=== PATIENT | male | born 1955 | race African-American/Black ===

== ENCOUNTER 2021-02-12 13:58 | Inpatient (IN) | payer MEDICARE, OTHER ==
[~2021-02-12] VITALS: Ht 180.3 cm; Wt 79.4 kg
--- NOTE | 2021-02-12 14:10 | NUR ---
PT BIB [facility] C/O BLE AND RUE EDEMA FOR A FEW DAYS. PT IS A DIALYSIS PATIENT AND WAS LAST DIALYZED FRIDAY. 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 STABLE VITALS. AWAITING MD MONTELONGO.
[2021-02-12] MEDS ORDERED: TAMS-12 PO (14:11)
[2021-02-12] MEDS ORDERED: MAGN400O6 PO (14:11)
[2021-02-12] MEDS ORDERED: SENN-261 PO (14:11)
[2021-02-12] MEDS ORDERED: NA P133E RC (14:11)
[2021-02-12] MEDS ORDERED: BISA10SU11 RC (14:11)
[2021-02-12] MEDS ORDERED: AMLO-213 PO (14:11)
[2021-02-12] MEDS ORDERED: SEVE800T8 PO (14:11)
[2021-02-12] MEDS ORDERED: ACET-868 PO (14:11)
[2021-02-12] MEDS ORDERED: FINA5TAB11 PO (14:11)
[2021-02-12] MEDS ORDERED: ACET-2605 PO (14:11)
--- NOTE | 2021-02-12 14:15 | NUR ---
DR PAZ AT BEDSIDE FOR EVAL.
--- NOTE | 2021-02-12 14:35 | NUR ---
IV LINE STARTED BLOOD DRAWN AND SENT TO LAB.
[2021-02-12 14:43] LABS: BASOPHILS # (AUTO) 0.1 K/uL (0.0-0.2); EOSINOPHILS % (AUTO) 2.1 % (0.0-6.0); HEMATOCRIT 28 % (39-51); HEMOGLOBIN 9.2 g/dL (13.5-17.5); LYMPHOCYTES % (AUTO) 9.3 % (20.0-44.0); MEAN CORPUSCULAR HGB CONC 33 g/dl (31.0-36.0); MEAN CORPUSCULAR VOLUME 80 fL (80-96); MONOCYTES # (AUTO) 0.8 K/uL (0.1-1.30); MONOCYTES % (AUTO) 6.8 % (2.0-12.0); NEUTROPHILS % (AUTO) 80.8 % (43.0-81.0); PLATELET COUNT (AUTO) 371 K/uL (150-450); RED BLOOD CELL COUNT(AUTO) 3.54 MIL/uL (4.5-6.0); WHITE BLOOD COUNT (AUTO) 11.2 K/uL (4.3-11.0)
[2021-02-12 15:07] LABS: CALCIUM, SERUM 8.2 mg/dL (8.5-10.1); CARBON DIOXIDE 25 mmol/L (21-32); CHLORIDE 99 mmol/L (98-107); GLUCOSE 114 mg/dL (74-106); SODIUM SERUM 133 mmol/L (136-145); UREA NITROGEN, BLOOD 50 mg/dL (7-18)
[2021-02-12 15:16] LABS: POTASSIUM 6.2 mmol/L (3.5-5.1)
[2021-02-12 15:17] LABS: CREATININE 7.7 mg/dL (0.6-1.3)
--- NOTE | 2021-02-12 15:20 | NUR ---
LAB REPORTED POTASSIUM 6.2, CREATININE 7.7. REPORTS READ BACK. DOCTOR MCINTOSH AWARE. WILL CONTINUE TO MONITOR Addendum: 02/12/21 at 1524 by IF LAB REPORTED POTASSIUM 6.2, CREATININE 7.7. REPORTS READ BACK. DOCTOR PAZ MADE AWARE. WILL CONTINUE TO MONITOR
[2021-02-12 15:21] LABS: ALANINE AMINOTRANSFERASE 11 U/L (12-78); ALBUMIN 2.2 g/dL (3.4-5.0); ALKALINE PHOSPHATASE 129 U/L (46-116); ASPARTATE AMINOTRANSFERASE 25 U/L (15-37); BILIRUBIN,DIRECT 0.1 mg/dL (0.0-0.2); BILIRUBIN,TOTAL 0.3 mg/dL (0.2-1.0)
[2021-02-12] MEDS ORDERED: INSULIN REGULAR, HUMAN 100 UNIT/ML 10 ML VIAL IV ONE (15:30)
[2021-02-12] MEDS ORDERED: FUROSEMIDE 40 MG/4 ML VIAL IV ONE (15:30)
[2021-02-12] MEDS ORDERED: FUROSEMIDE 20 MG/2 ML VIAL ONE (15:30)
[2021-02-12] MEDS ORDERED: SODIUM BICARBONATE SYR 50 MEQ/50 ML DISP.SYRIN IV ONE ×2 (15:30→22:30)
[2021-02-12] MEDS ORDERED: DEXTROSE 50%-WATER 50 ML DISP.SYRIN IV ONE (15:30)
[2021-02-12] MEDS ORDERED: CALCIUM CHLORIDE 1,000 MG/10 ML DISP.SYRIN IV ONE (15:30)
[2021-02-12] MEDS ORDERED: DEXTROSE 50%-WATER 50 ML DISP.SYRIN ONE (15:39)
[2021-02-12] MEDS ORDERED: SODIUM BICARBONATE SYR 50 MEQ/50 ML DISP.SYRIN ONE (15:39)
[2021-02-12] MEDS ORDERED: CALCIUM CHLORIDE 1,000 MG/10 ML DISP.SYRIN ONE (15:39)
[2021-02-12] MEDS ORDERED: INSULIN REGULAR, HUMAN 100 UNIT/ML 10 ML VIAL ONE (15:40)
[2021-02-12] MEDS ORDERED: HYDROCODONE/APAP 10/325MG TABLET ONE (16:07)
[2021-02-12] MEDS ORDERED: HYDROCODONE/APAP 10/325MG TABLET PO ONE (16:30)
--- NOTE | 2021-02-12 19:20 | NUR ---
REPORT TO CANDIDO SALAZAR FOR LORI.
[2021-02-12] MEDS ORDERED: SODIUM POLYSTYRENE SULFONATE 15 G/60 ML BOTTLE PO ONE ×2 (19:30→23:00)
[2021-02-12] MEDS ORDERED: SODIUM POLYSTYRENE SULFONATE 15 G/60 ML BOTTLE ONE ×2 (19:42→23:41)
--- NOTE | 2021-02-12 21:40 | NUR ---
PER NURSING RN 113-2 IS THE ROOM PT WILL GO TO.
--- NOTE | 2021-02-12 22:18 | NUR ---
CONTACTED DR LLAMAS, DR RAMIREZ, DR WYATT REGARDING THROMBUS IN RIGHT IJV. PER DR WYATT OK TO USE PERMACATH. PER DR LLAMAS WILL START PT ON ELIQUIS.
--- NOTE | 2021-02-12 22:24 | NUR ---
gave report to MARTIN Valderrama for lindsey
[2021-02-12 22:33] VITALS: BP 177/112
--- NOTE | 2021-02-12 22:33 | NUR ---
ADMIT NOTE PATIENT TRANSFERRED FROM ER TO ROOM 113-2. ALERT AND ORIENTED X4, ABLE TO MAKE NEEDS KNOWN. ON ROOM AIR, O2 SAT 97%. RESPIRATIONS EVEN AND UNLABORED. COMPLAINED OF MODERATE GENERALIZED PAIN, REQUESTING FOR PAIN PILL POST DIALYSIS. IV ACCESS ON SANGITA #20. NOTED WITH RIGHT CHEST WALL HD CATH. CONSENT FOR HEMODIALYSIS RECEIVED FROM PATIENT, FOR DIALYSIS TONIGHT. COMPLAINED OF RIGHT ARM SWELLING +4 PITTING EDEMA X2 WEEKS. ALSO NOTED WITH +4 PITTING EDEMA ON BILATERAL LOWER EXTREMITIES AND SCROTUM. SKIN IS INTACT. PATIENT NOTED WITH "Distended right internal jugular vein with near occlusive thrombus." MD AWARE. ORIENTED PATIENT TO ROOM AND CALL LIGHT. BED LOCKED AND IN LOWEST POSITION. CALL LIGHT WITHIN REACH. ALL NEEDS ANTICIPATED.
[2021-02-12] MEDS ORDERED: ZOLPIDEM TARTRATE 5 MG TABLET PO PRN (23:00)
[2021-02-13] VITALS: BP 147/106
--- NOTE | 2021-02-13 00:45 | NUR ---
RN NOTE DIALYSIS COMPLETED, 2000 ML REMOVED. PATIENT TOLERATED WELL. BLOOD PRESSURE 147/106.
[2021-02-13] MEDS: HYDROCODONE/APAP 5/325MG TABLET PO PRN ×2 (00:58→01:19)
--- NOTE | 2021-02-13 01:20 | NUR ---
RN NOTE PATIENT REQUESTING PAIN MEDICATION FOR RIGHT ARM/GENERALIZED BODY. OFFERRED NORCO 5/325 MG AND ASSISTED PATIENT WITH MEDICATION. PATIENT LOOKS AT TABLET AND SPECIFICALLY REQUESTED THE SAME NORCO DOSE THAT WAS GIVEN IN ER. SPOKE WITH DR. MURIEL REVELES WITH NEW ORDERS FOR NORCO 10/325MG PO Q6H PRN FOR SEVERE PAIN AND NOVEL CORONAVIRUS TEST NOTED AND CARRIED OUT. PATIENT REFUSING NORCO 5/325MG, WASTED WITH WITNESS VENUS SALAZAR. CHARGE NURSE MAIRA POPE.
[2021-02-13] MEDS: HYDROCODONE/APAP 10/325MG TABLET PO PRN ×4 (01:29→22:26)
[2021-02-13 04:00] VITALS: BP 175/106
[2021-02-13] MEDS ORDERED: CLONIDINE HCL 0.1 MG TABLET PO PRN (05:00)
--- NOTE | 2021-02-13 05:00 | NUR ---
RN NOTE PATIENT NOTED WITH ELEVATED BLOOD PRESSURE 175/106. NOTIFIED DR. MURIEL REVELES WITH NEW ORDERS NOTED AND CARRIED OUT.
--- NOTE | 2021-02-13 07:25 | NUR ---
RN NOTE PATIENT ALERT AND ORIENTED X4. ON ROOM AIR, O2 SAT 97%. RESPIRATIONS EVEN AND UNLABORED. IV ACCESS ON SANGITA #20. NOTED WITH RIGHT CHEST WALL HD CATH DRESSING DRY AND INTACT. SKIN IS INTACT. ASSISTED TO BEDSIDE COMMODE AND HAD BM X3. BED LOCKED AND IN LOWEST POSITION. CALL LIGHT WITHIN REACH. WILL ENDORSE TO AM SHIFT.
[2021-02-13 07:51] LABS: CALCIUM, SERUM 7.9 mg/dL (8.5-10.1); CREATININE 6.5 mg/dL (0.6-1.3); POTASSIUM 4.3 mmol/L (3.5-5.1)
[2021-02-13 08:00] VITALS: BP 157/83
--- NOTE | 2021-02-13 08:00 | NUR ---
RN NOTE PATIENT ALERT AND ORIENTED X4. ON ROOM AIR, O2 SAT 99%. RESPIRATIONS EVEN AND UNLABORED. IV ACCESS ON SANGITA #20. NOTED WITH RIGHT CHEST WALL HD CATH DRESSING DRY AND INTACT. SKIN IS INTACT. ASSISTED TO BEDSIDE COMMODE . BED LOCKED AND IN LOWEST POSITION. CALL LIGHT WITHIN REACH WITH ENG CATH TO GRAVITY WITH YELLOW COLOR URINE ON TELE MONITOR HR 89 CALL LIGHT WITHIN REACH
[2021-02-13] MEDS ORDERED: ACETAMINOPHEN 325 MG TABLET PO PRN (08:30)
[2021-02-13] MEDS ORDERED: BISACODYL SUPP (10 MG) 10 MG/SUPP.RECT SUPP.RECT RC PRN (08:30)
[2021-02-13] MEDS ORDERED: ACETAMINOPHEN ES 500 MG TABLET PO PRN (08:30)
[2021-02-13] MEDS ORDERED: NA PHOS,M-B/NA PHOS,DI-BA 1 EA ENEMA RC PRN (08:30)
[2021-02-13] MEDS ORDERED: MAGNESIUM HYDROXIDE 30 ML UDC PO PRN (08:30)
--- NOTE | 2021-02-13 09:00 | NUR ---
RECYCLING CENTER OPERATOR NOTE C\O PAIN NORCO PO GIVEN ORDERED BP 157/83 SATURATION 99%
[2021-02-13] MEDS: APIXABAN 5 MG TABLET PO SCH ×2 (09:10→21:51)
[2021-02-13] MEDS: AMLODIPINE BESYLATE 10 MG TABLET PO SCH (09:12)
[2021-02-13 09:33] LABS: BASOPHILS % (AUTO) 0.5 % (0.0-2.0); EOSINOPHILS % (AUTO) 2.3 % (0.0-6.0); HEMATOCRIT 27 % (39-51); HEMOGLOBIN 8.7 g/dL (13.5-17.5); LYMPHOCYTES % (AUTO) 10.7 % (20.0-44.0); MEAN CORPUSCULAR HGB CONC 32 g/dl (31.0-36.0); MEAN CORPUSCULAR VOLUME 82 fL (80-96); MONOCYTES # (AUTO) 0.8 K/uL (0.1-1.30); MONOCYTES % (AUTO) 7.8 % (2.0-12.0); NEUTROPHILS # (AUTO) 7.7 K/uL (1.8-8.9); NEUTROPHILS % (AUTO) 78.7 % (43.0-81.0); PLATELET COUNT (AUTO) 307 K/uL (150-450); RED BLOOD CELL COUNT(AUTO) 3.31 MIL/uL (4.5-6.0); WHITE BLOOD COUNT (AUTO) 9.7 K/uL (4.3-11.0)
--- NOTE | 2021-02-13 10:49 | NUR ---
SENIOR APPLICATIONS ANALYST NOTE SEEN BY DR LLAMAS AWARE THAT NORCO PO GIVEN ORDERED UA ,WILL F\U
--- NOTE | 2021-02-13 11:05 | NUR ---
CLEMENCIA SCHRADER COLLECTED ORDERED Addendum: 02/13/21 at 1238 by DERICK MOFFETT RN MARYSOL GIVEN ORDERED
[2021-02-13] MEDS: hydrALAZINE HCL 50 MG TABLET PO SCH ×3 (11:25→16:16)
[2021-02-13 12:00] VITALS: BP 142/91
[2021-02-13] MEDS: SEVELAMER CARBONATE 800 MG TABLET PO SCH ×2 (12:27→18:11)
--- NOTE | 2021-02-13 14:17 | NUR ---
telephone sales agent note rounds made , all needs attended not in distress
[2021-02-13 16:00] VITALS: BP 134/82
[2021-02-13 16:29] LABS: BILIRUBIN,URINE NEGATIVE (NEGATIVE); LEUKOCYTE ESTERASE ,URINE TRACE (NEGATIVE); NITRITE, URINE NEGATIVE (NEGATIVE); PH,URINE 8.5 (5.0-8.0); PROTEIN,URINE 100 mg/dl (NEGATIVE); UGLUCOSE NEGATIVE (NEGATIVE); UROBILINOGEN,URINE 0.2 EU/dL (0.2)
[2021-02-13 16:34] LABS: COLOR,URINE Light Amber (YELLOW)
[2021-02-13 16:39] LABS: BACTERIA,URINE None seen /HPF (None Seen); RBC,URINE 51-80 /HPF (0-2); SQUAMOUS EPITHELIAL CELL,UR Rare /HPF (None Seen)
--- NOTE | 2021-02-13 17:10 | NUR ---
telecommunicator note all needs attended ,c\o apm 8\10 [place] po given as ordered will monitor
[2021-02-13] MEDS: TAMSULOSIN 0.4 MG CAP.SR.24H PO SCH (18:11)
[2021-02-13] MEDS ORDERED: EPOETIN ALFA-EPBX 4,000 UNIT/ML VIAL IV PRN (19:00)
[2021-02-13] MEDS ORDERED: EPOETIN ALFA (4000 UNIT) 4,000 UNIT/ML VIAL IV SCH (19:00)
--- NOTE | 2021-02-13 19:19 | NUR ---
television specialist note rounds made, not in distresses, have fdinner , all needs attended ,will cont to monitor closely
--- NOTE | 2021-02-13 19:45 | NUR ---
RN NOTE PT RECEIVED IN BED. PT IS ON ROOM AIR SHOWING NO S/S OF RESP DISTRESS/SOB. BREATHING EVEN AND UNLABORED. A/OX3. PT ON TELE MONITOR SHOWING NSR. EDEMA NOTED ON BILATERAL LOWER EXTREMITIES, RIGHT ARM, AND SCROTUM. ENG CATH NOTED. PT IS ABLE TO USE BEDSIDE COMMODE. SKIN INTACT. RIGHT PERMCATH HD NOTED. IV ACCESS NOTED ON LEFT UPPER ARM #20. LINE FLUSHED, PATENT, AND INTACT WITH NO SIGNS/SYMPTOMS OF INFILTRATION. ALL SAFETY MEASURES IMPLEMENTED. CALL LIGHT WITHIN REACH. BED ALARM ON. BED LOCKED AND IN LOWEST POSITION. WILL CONTINUE TO MONITOR AND ASSESS FOR ANY CHANGES THROUGHOUT THE SHIFT.
[2021-02-13] MEDS: FUROSEMIDE 40 MG/4 ML VIAL IV SCH (19:56)
[2021-02-13 20:00] VITALS: BP 127/86
[2021-02-13] MEDS ORDERED: FINASTERIDE (5 MG) 5 MG TABLET PO SCH (22:00)
[2021-02-14] VITALS: BP 138/83
[2021-02-14 04:00] VITALS: BP 146/84
[2021-02-14] MEDS: HYDROCODONE/APAP 10/325MG TABLET PO PRN (04:38)
[2021-02-14 06:39] LABS: BASOPHILS # (AUTO) 0.1 K/uL (0.0-0.2); BASOPHILS % (AUTO) 0.9 % (0.0-2.0); EOSINOPHILS % (AUTO) 3.4 % (0.0-6.0); HEMATOCRIT 23 % (39-51); HEMOGLOBIN 7.7 g/dL (13.5-17.5); LYMPHOCYTES # (AUTO) 1.5 K/uL (0.8-4.8); LYMPHOCYTES % (AUTO) 15.1 % (20.0-44.0); MEAN CORPUSCULAR HGB CONC 34 g/dl (31.0-36.0); MEAN CORPUSCULAR VOLUME 79 fL (80-96); MONOCYTES # (AUTO) 0.9 K/uL (0.1-1.30); MONOCYTES % (AUTO) 8.8 % (2.0-12.0); NEUTROPHILS % (AUTO) 71.8 % (43.0-81.0); PLATELET COUNT (AUTO) 319 K/uL (150-450); RED BLOOD CELL COUNT(AUTO) 2.88 MIL/uL (4.5-6.0); WHITE BLOOD COUNT (AUTO) 9.8 K/uL (4.3-11.0)
--- NOTE | 2021-02-14 06:39 | NUR ---
RN NOTE NO CHANGES IN PT CONDITION DURING SHIFT. PT IS ON ROOM AIR SHOWING NO S/S OF RESP DISTRESS/SOB. BREATHING EVEN AND UNLABORED. ON TELE MONITOR SHOWING NSR. EDEMA PRESENT ON BILATERAL LOWER EXTREMITIES, RIGHT ARM, AND SCROTUM. RIGHT PERMCATH HD NOTED. IV ACCESS NOTED ON LEFT UPPER ARM #20. LINE FLUSHED, PATENT, AND INTACT WITH NO SIGNS/SYMPTOMS OF INFILTRATION. ALL DUE MEDS GIVEN ORDERED. PT KEPT CLEAN AND COMFORTABLE. ALL SAFETY MEASURES IMPLEMENTED. CALL LIGHT WITHIN REACH. BED ALARM ON. BED LOCKED AND IN LOWEST POSITION. WILL ENDORSE TO MORNING SHIFT RN FOR LORI.
[2021-02-14 07:05] LABS: POTASSIUM 4.8 mmol/L (3.5-5.1)
[2021-02-14 07:18] LABS: CREATININE 7.5 mg/dL (0.6-1.3)
--- NOTE | 2021-02-14 07:26 | NUR ---
NURSE CLOSING NOTE. RECEIVE REPORT FROM OUT GOING NURSE. PATIENT IN STABLE CONDITION AT TIME OF REPORT. A/O X3. AMBULATORY WITH ASSISTANCE. NORCO WAS GIVEN DURING GLASS ENAMEL MIXER. WILL FOLLOW UP WITH AM LAB AND POTASSIUM. POSSIBLE DIALYSIS. ALL SAFETY MEASURE IN PLACE WITH BED. BED ON THE LOWEST POSITION WITH HOB ELEVATED AND 3 SIDE RAIL UP. CALL LIGHT WITHIN REACH. WILL CONTINUE TO MONITOR. Addendum: 02/14/21 at 6207 by DEWAYNE GARCIA RN NURSE OPENING NOTE
[2021-02-14 07:27] LABS: THYROID STIMULATING HORMONE 2.509 uIU/mL (0.358-3.74)
[2021-02-14 08:00] VITALS: BP 148/89
[2021-02-14] MEDS: FUROSEMIDE 40 MG/4 ML VIAL IV SCH ×2 (09:00→17:00)
[2021-02-14] MEDS: APIXABAN 5 MG TABLET PO SCH (09:00)
[2021-02-14] MEDS: SEVELAMER CARBONATE 800 MG TABLET PO SCH ×3 (09:05→18:00)
[2021-02-14] MEDS: AMLODIPINE BESYLATE 10 MG TABLET PO SCH (09:08)
[2021-02-14] MEDS: hydrALAZINE HCL 50 MG TABLET PO SCH ×3 (09:08→16:30)
[2021-02-14] MEDS ORDERED: APIX5TAB PO (10:47)
[2021-02-14] MEDS ORDERED: HYDR-4077 PO (10:47)
[2021-02-14 12:00] VITALS: BP 150/98
[2021-02-14 16:00] VITALS: BP 172/123
[2021-02-14 16:30] VITALS: BP 159/107
[2021-02-14] MEDS: TAMSULOSIN 0.4 MG CAP.SR.24H PO SCH (18:00)
[2021-02-20] MEDS ORDERED: APIXABAN 5 MG TABLET PO SCH (09:00)
== END 2021-02-14 18:57 | DRG 640 ==
LOC: ER 14:07 → TELE1 21:45 → MEDSG1 02-14 08:14
PROVIDERS: ADMIT Internal Medicine; ATTEND Internal Medicine
PROC: 5A1D70Z Performance of Urinary Filtration, Intermittent, Less than 6 Hours Per Day (ICD-10-PCS; principal; 2021-02-12)
DX: E87.70 Fluid overload, unspecified (principal); N18.6 End stage renal disease; I12.0 Hypertensive chronic kidney disease with stage 5 chronic kidney disease or end stage renal disease; I82.C11 Acute embolism and thrombosis of right internal jugular vein; E87.5 Hyperkalemia; Z20.822 Contact with and (suspected) exposure to COVID-19; Z99.2 Dependence on renal dialysis; Z79.899 Other long term (current) drug therapy; D63.1 Anemia in chronic kidney disease; E88.09 Other disorders of plasma-protein metabolism, not elsewhere classified; Z79.01 Long term (current) use of anticoagulants; N40.0 Benign prostatic hyperplasia without lower urinary tract symptoms; N50.89 Other specified disorders of the male genital organs; M89.9 Disorder of bone, unspecified; F17.200 Nicotine dependence, unspecified, uncomplicated
CPT/HCPCS: 36415; 71045-TC; 76870-TC; 80048-TC; 80076-TC; 81001; 83540-TC; 83880; 84100-TC; 84443-TC; 84484-TC; 85025-TC; 85730-TC; 86706; 87081-TC; 87340; 90935-TC; 93307-TC; 93970-TC; 93971-TC; C9803; G0378; J1815; J1940; J3490; J7030; U0003

== ENCOUNTER 2021-02-19 13:35 | Emergency (ER) | payer MEDICARE, OTHER ==
[~2021-02-19] VITALS: Ht 182.9 cm; Wt 84.8 kg
[~2021-02-19 13:35] MED LIST: ACET-2605 PO; ACET-868 PO; AMLO-213 PO; APIX5TAB PO; BISA10SU11 RC; FINA5TAB11 PO; HYDR-4077 PO; MAGN400O6 PO; NA P133E RC; SEVE800T8 PO; TAMS-12 PO
[2021-02-19] MEDS ORDERED: SENN-261 PO (13:44)
[2021-02-19] MEDS ORDERED: HYDR-3980 PO (13:44)
[2021-02-19] MEDS ORDERED: HYDR-4077 PO (13:44)
[2021-02-19] MEDS ORDERED: APIX5TAB PO (13:44)
--- NOTE | 2021-02-19 13:56 | NUR ---
BIB [facility] c/o sob x 3 days, worse today. 86% o2 sat in field. Put patient on non-rebreather mask @ 15lpm, 02 sat 98%. Connected to the monitor and pulse ox. [place] attached to drainage bag. Kept comfortable, will continue to monitor accordingly.
[2021-02-19] MEDS ORDERED: NTG 50 MG/D5W250 ML BOTTL 250 ML IV PRN (14:30)
--- NOTE | 2021-02-19 14:38 | NUR ---
urine collected and sent to lab.
[2021-02-19 14:57] LABS: BASOPHILS # (AUTO) 0.1 K/uL (0.0-0.2); EOSINOPHILS % (AUTO) 0.6 % (0.0-6.0); HEMATOCRIT 27 % (39-51); HEMOGLOBIN 8.7 g/dL (13.5-17.5); LYMPHOCYTES # (AUTO) 0.7 K/uL (0.8-4.8); LYMPHOCYTES % (AUTO) 4.7 % (20.0-44.0); MEAN CORPUSCULAR HGB CONC 32 g/dl (31.0-36.0); MEAN CORPUSCULAR VOLUME 79 fL (80-96); MONOCYTES # (AUTO) 0.6 K/uL (0.1-1.30); MONOCYTES % (AUTO) 4.2 % (2.0-12.0); NEUTROPHILS # (AUTO) 12.4 K/uL (1.8-8.9); NEUTROPHILS % (AUTO) 89.5 % (43.0-81.0); PLATELET COUNT (AUTO) 316 K/uL (150-450); RED BLOOD CELL COUNT(AUTO) 3.39 MIL/uL (4.5-6.0); WHITE BLOOD COUNT (AUTO) 13.9 K/uL (4.3-11.0)
[2021-02-19 15:01] LABS: BILIRUBIN,URINE NEGATIVE (NEGATIVE); COLOR,URINE YELLOW (YELLOW); LEUKOCYTE ESTERASE ,URINE NEGATIVE (NEGATIVE); NITRITE, URINE NEGATIVE (NEGATIVE); PROTEIN,URINE 100 mg/dl (NEGATIVE); UGLUCOSE NEGATIVE (NEGATIVE); UROBILINOGEN,URINE 0.2 EU/dL (0.2)
[2021-02-19 15:18] LABS: PH,URINE >8.5 (5.0-8.0)
[2021-02-19 15:21] LABS: BACTERIA,URINE 1+ /HPF (None Seen); RBC,URINE 51-80 /HPF (0-2)
[2021-02-19 15:53] LABS: CALCIUM, SERUM 8.2 mg/dL (8.5-10.1); CREATININE 6.6 mg/dL (0.6-1.3)
[2021-02-19 15:54] LABS: POTASSIUM 5.9 mmol/L (3.5-5.1)
[2021-02-19 15:59] LABS: ALBUMIN 2.3 g/dL (3.4-5.0); BILIRUBIN,DIRECT 0.1 mg/dL (0.0-0.2); BILIRUBIN,TOTAL 0.4 mg/dL (0.2-1.0); TOTAL PROTEIN, SERUM 6.9 g/dL (6.4-8.2)
[2021-02-19] MEDS ORDERED: CEFEPIME 1 GM in IV D5W 50 ML IV ONE (16:00)
[2021-02-19] MEDS ORDERED: VANCOMYCIN 1 GM in IV D5W 250 ML IV ONE (16:00)
[2021-02-19] MEDS ORDERED: DEXTROSE 50%-WATER 50 ML DISP.SYRIN IV ONE (16:30)
[2021-02-19] MEDS ORDERED: INSULIN REGULAR, HUMAN 100 UNIT/ML 10 ML VIAL IV ONE (16:30)
[2021-02-19] MEDS ORDERED: ASPIRIN 81 MG TAB.CHEW PO ONE (16:30)
[2021-02-19] MEDS ORDERED: SODIUM POLYSTYRENE SULFONATE 15 G/60 ML BOTTLE PO ONE (16:30)
[2021-02-19] MEDS ORDERED: ALBUTEROL FS 2.5 MG/3 ML VIAL.NEB NEB ONE (16:30)
[2021-02-19] MEDS ORDERED: SODIUM POLYSTYRENE SULFONATE 15 G/60 ML BOTTLE ONE (16:38)
[2021-02-19] MEDS ORDERED: DEXTROSE 50%-WATER 50 ML DISP.SYRIN ONE (16:39)
[2021-02-19] MEDS ORDERED: ASPIRIN 81 MG TAB.CHEW ONE (16:39)
[2021-02-19] MEDS ORDERED: INSULIN REGULAR, HUMAN 100 UNIT/ML 10 ML VIAL ONE (16:39)
[2021-02-19] MEDS ORDERED: ALBUTEROL FS 2.5 MG/3 ML VIAL.NEB ONE (16:48)
--- NOTE | 2021-02-19 18:51 | NUR ---
called lab for repeat troponin and K+.
--- NOTE | 2021-02-19 19:21 | NUR ---
report given to roberto SALAZAR for lindsey.
--- NOTE | 2021-02-19 19:34 | NUR ---
LAB AT BEDSIDE
[2021-02-19 19:59] LABS: POTASSIUM 4.4 mmol/L (3.5-5.1)
--- NOTE | 2021-02-19 21:50 | NUR ---
FOLLOWED UP WITH [facility] [employer] REGARDING TRANSFER. STILL WORKING ON A ROOM AT [facility]
--- NOTE | 2021-02-19 22:55 | NUR ---
PT ACCEPTED AT [facility] UNDER THE CARE OF DR. BOWMAN. PT IS GOING TO ROOM 317-A TELE. CALL [phone] FOR REPORT.
--- NOTE | 2021-02-19 22:58 | NUR ---
[facility] DETECTIVE WILL CALL BACK FOR ETA
--- NOTE | 2021-02-19 23:47 | NUR ---
called Hilda BANEGAS to f/u about ambulance eta [phone]. voicemail not available
--- NOTE | 2021-02-20 | NUR ---
called [facility] Stevens for ambulance update, voicemail not available
--- NOTE | 2021-02-20 00:04 | NUR ---
gave report to suhail Rodriguez for lindsey at [facility]
--- NOTE | 2021-02-20 00:16 | NUR ---
PER JAMES, [facility], [facility] ETA 0741
--- NOTE | 2021-02-20 00:30 | NUR ---
SPOKE WITH [facility] ABOUT MORE APPROPRIATE AMBULANCE ETA OR AUTH FOR ADMISSION IN [facility], PER IRIS, PT NEEDS TO BE TRANSFERED. [facility]TA WILL REMAIN 0730
--- NOTE | 2021-02-20 01:30 | NUR ---
Patient is resting comfortably in bed with eyes closed. Easily aroused. VSS
--- NOTE | 2021-02-20 02:15 | NUR ---
pt sleeping, attached to monitor. vss
--- NOTE | 2021-02-20 03:45 | NUR ---
pt sleeping, easily arousable. vss
--- NOTE | 2021-02-20 04:18 | NUR ---
pt sleeping, attached to monitor and pox.
--- NOTE | 2021-02-20 05:04 | NUR ---
Patient is resting comfortably in bed with eyes closed. Easily aroused. VSS
--- NOTE | 2021-02-20 06:15 | NUR ---
pt sleeping, easily arousable. attached to monitor and pox, vss
[2021-02-20 06:41] VITALS: BP 148/67
--- NOTE | 2021-02-20 07:03 | NUR ---
gave report to ems
== END 2021-02-20 07:10 | disposition short-term general hospital (02) ==
LOC: ER 13:40
DX: E87.70 Fluid overload, unspecified (principal); I12.0 Hypertensive chronic kidney disease with stage 5 chronic kidney disease or end stage renal disease; N18.6 End stage renal disease; N17.9 Acute kidney failure, unspecified; Z99.2 Dependence on renal dialysis; N40.0 Benign prostatic hyperplasia without lower urinary tract symptoms; Z20.822 Contact with and (suspected) exposure to COVID-19; Z86.718 Personal history of other venous thrombosis and embolism; Z79.01 Long term (current) use of anticoagulants; E87.5 Hyperkalemia; R31.9 Hematuria, unspecified; D64.9 Anemia, unspecified; R77.8 Other specified abnormalities of plasma proteins; J90 Pleural effusion, not elsewhere classified; R60.1 Generalized edema
CPT/HCPCS: 36410; 36415; 71045; 80048; 80076; 81001; 83605; 84132; 84145; 84484 ×2; 85025; 85730; 87040 ×2; 87081; 87086; 87426; 93005; 94644; 96365; 96367; 96375; 99291; J0692; J1815; J3370; J7060; C9803; U0003

== ENCOUNTER 2021-06-11 13:37 | Emergency (ER) | payer MEDICARE, OTHER ==
[~2021-06-11] VITALS: Ht 180.3 cm; Wt 71.7 kg
[~2021-06-11 13:37] MED LIST changes: +HYDR-3980 PO; +SENN-261 PO
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
[2021-06-11] MEDS ORDERED: FOLI0.4T6 PO (13:48)
[2021-06-11] MEDS ORDERED: ALBU8.5H8 IH (13:48)
[2021-06-11] MEDS ORDERED: FERR325T23 PO (13:48)
[2021-06-11] MEDS ORDERED: FOLI0.8T2 PO (13:48)
[2021-06-11] MEDS ORDERED: MORPHINE SULFATE INJ 2 MG/ML DISP.SYRIN IM ONE (14:30)
[2021-06-11] MEDS ORDERED: MORPHINE SULFATE INJ 4 MG/ML DISP.SYRIN ONE (14:41)
[2021-06-11 15:37] VITALS: BP 134/89
--- NOTE | 2021-06-11 15:45 | NUR ---
CALLED [facility] AND SET UP BLS TRANSPORT TO [facility] ETA [phone]
[2021-06-11] MEDS ORDERED: HYDR-4209 PO (15:46)
--- NOTE | 2021-06-11 16:39 | NUR ---
REPORT GIVEN TO AMBULANCE STAFF
--- NOTE | 2021-06-11 16:41 | NUR ---
REPORT GIVEN TO NURSE EVERETT FROM [facility]
--- NOTE | 2021-06-11 16:42 | NUR ---
Patient discharged to home in stable condition. Written and verbal after care instructions given. Patient verbalizes understanding of instruction.
== END 2021-06-11 16:44 ==
LOC: ER 13:43
DX: M16.12 Unilateral primary osteoarthritis, left hip (principal); I10 Essential (primary) hypertension; N18.6 End stage renal disease; Z99.2 Dependence on renal dialysis; Z87.448 Personal history of other diseases of urinary system; Z87.828 Personal history of other (healed) physical injury and trauma; Z79.891 Long term (current) use of opiate analgesic; Z79.51 Long term (current) use of inhaled steroids; Z79.1 Long term (current) use of non-steroidal anti-inflammatories (NSAID); Z79.899 Other long term (current) drug therapy
CPT/HCPCS: 73503; 96372; 99283; J2270; 73502